=== PATIENT | female | born 1975 | race Two or more races ===

== ENCOUNTER 2021-04-20 15:40 | Emergency (ER) | payer OTHER ==
[~2021-04-20] VITALS: Ht 160 cm; Wt 65.8 kg
[2021-04-20] MEDS ORDERED: SYNTHROID50 MCG PO (15:50)
[2021-04-20] MEDS ORDERED: NAPROXEN500 MG PO (19:30)
[2021-04-20] MEDS ORDERED: NORFLEX100MG PO (19:34)
== END 2021-04-20 19:40 | disposition home or self-care (01) ==
LOC: ER 15:40
DX: S00.93XA Contusion of unspecified part of head, initial encounter (principal); X58.XXXA Exposure to other specified factors, initial encounter; Y93.89 Activity, other specified; Y92.89 Other specified places as the place of occurrence of the external cause; Y99.8 Other external cause status; Z88.2 Allergy status to sulfonamides; Z88.8 Allergy status to other drugs, medicaments and biological substances